=== PATIENT | female | born 1950 | race Caucasian/White ===

== ENCOUNTER 2025-01-21 16:24 | Inpatient (IN) | payer MEDICAID ==
[~2025-01-21] VITALS: Ht 157.5 cm; Wt 74.4 kg
[~2025-01-21 16:24] MED LIST: BENA-8 PO; CIPR-263 MT; FERR325T6 PO; INSHUMSS SUBCUT; INSU100I28 SQ; METF-414 PO; MULT-1116 PO; OMEG-119 MT; PIOG15TA68 PO; SIMV10TA97 PO; VITA250012 MT
[2025-01-21] MEDS ORDERED: LORAZEPAM 2MG/ML INJ IV STA (16:41)
[2025-01-21] MEDS: HALOPERIDOL LACTATE 5MG/ML VIAL IM STA (16:55)
[2025-01-21] MEDS: DIPHENHYDRAMINE 50MG/ML VIAL IV STA (16:55)
[2025-01-21] MEDS: LORAZEPAM 2MG/ML UD SYRINGE IV NR (16:57)
[2025-01-21 17:42] LABS: HEMATOCRIT. 38.2 % (36.0-48.0); HEMOGLOBIN. 12.9 g/dL (12.0-16.0); MEAN CORPUSCULAR HEMOGLOBIN 29.1 pg (28.0-32.0); MEAN CORPUSCULAR HGB CONC 33.8 g/dL (31.0-37.0); MEAN CORPUSCULAR VOLUME 86.1 fL (81.0-99.0); MEAN PLATELET VOLUME 9.5 fl (7.4-10.4); RED BLOOD CELL COUNT 4.44 mill/uL (4.2-5.4); RED CELL DISTRIBUTION WIDTH 17.8 % (11.6-14.6)
[2025-01-21 17:47] LABS: CLARITY URINE CLEAR (CLEAR); COLOR URINE YELLOW (YELLOW); GLUCOSE URINE 3+ (NEGATIVE); KETONES URINE NEGATIVE (NEGATIVE); LEUKOCYTE ESTERASE URINE NEGATIVE (NEGATIVE); NITRITE URINE NEGATIVE (NEGATIVE); OCCULT BLOOD URINE NEGATIVE (NEGATIVE); PROTEIN URINE NEGATIVE (NEGATIVE); SPECIFIC GRAVITY URINE 1.033 (1.005-1.030)
[2025-01-21 17:56] LABS: CHLORIDE 110 mEq/L (98-107); POTASSIUM 3.4 mEq/L (3.5-5.1); SODIUM 145 mEq/L (136-145)
[2025-01-21 17:57] LABS: CALCIUM 9.4 mg/dL (8.7-10.4); CARBON DIOXIDE 23 mEq/L (21-32); DIFFERENTIAL COMMENT 1
[2025-01-21 18:02] LABS: CREATININE 0.8 mg/dL (0.6-1.0); GLUCOSE 296 mg/dL (70-105); UREA NITROGEN BLOOD 12 mg/dL (9-23)
[2025-01-21 18:03] LABS: ETHANOL BLOOD < 10 mg/dL (<10); TROPONIN I HIGH SENSITIVITY 7 ng/L (3.0-34); WHITE BLOOD COUNT 1.7 x1000/uL (4.5-11.0)
[2025-01-21 18:04] LABS: ACETAMINOPHEN < 2 ug/mL (10-30); ALANINE AMINOTRANSFERASE 24 IU/L (10-49); ALBUMIN 3.9 g/dL (3.2-4.8); ASPARTATE AMINOTRANSFERASE 22 IU/L (<34); BILIRUBIN DIRECT 0.5 mg/dL (<=3.0); BILIRUBIN TOTAL 1.4 mg/dL (0.1-1.0); CREATINE KINASE 191 IU/L (34-145); PLATELET 48 x1000/uL (130-400)
[2025-01-21 18:05] LABS: PROTEIN TOTAL 6.2 g/dL (6.0-8.3)
[2025-01-21 18:06] LABS: *AMPHETAMINES SCREEN URINE NEGATIVE (NEGATIVE); *BARBITURATES SCREEN URINE NEGATIVE (NEGATIVE); *BENZODIAZEPINES SCREEN URINE NEGATIVE (NEGATIVE); *COCAINE SCREEN URINE NEGATIVE (NEGATIVE); BACTERIA URINE NONE SEEN; CANNABINOID URINE SCREEN NEGATIVE (NEGATIVE); METHADONE URINE SCREEN NEGATIVE (NEGATIVE); OPIATES URINE SCREEN NEGATIVE (NEGATIVE); PHENCYCLIDINE URINE SCREEN NEGATIVE (NEGATIVE); RBC URINE 0-2 /hpf (0-2); SQUAMOUS EPITHELIAL CELL URINE 1+ /lpf (RARE/1+); WBC URINE 0-2 /hpf (0-2)
[2025-01-21 18:07] LABS: ECSTASY MDMA SCREEN URINE NEGATIVE (NEGATIVE)
[2025-01-21 18:07] LABS: THYROID STIMULATING HORMONE 2.61 uIU/mL (0.55-4.78)
[2025-01-21 18:19] LABS: AMMONIA 146 uMol/L (<32)
[2025-01-21] MEDS ORDERED: LACTULOSE 20G/30ML UDC PO ONE (18:30)
[2025-01-21 18:31] LABS: MICROCYTOSIS 1+; PLATELET ESTIMATE DECREASED
[2025-01-21] MEDS ORDERED: ONDANSETRON HCL 4MG/2ML INJ IV PRN (19:45)
[2025-01-21] MEDS ORDERED: GUAIFENESIN 200MG/10ML SUGAR FREE UDC PO PRN (19:45)
[2025-01-21] MEDS ORDERED: IPRATROPIUM/ALBUTEROL 0.5-3(2.5)MG/3ML NEB HHN PRN (19:45)
[2025-01-21] MEDS ORDERED: CLONIDINE 0.1MG TABLET PO PRN (19:45)
[2025-01-21] MEDS ORDERED: ACETAMINOPHEN 325MG TABLET PO PRN ×2 (19:45)
[2025-01-21 20:00] VITALS: BP 136/49; PULSE 93; RESP 20; TEMP 36.8; TEMP 37; O2SAT 98
[2025-01-21] MEDS ORDERED: DEXTROSE 50% WATER 50ML SYRINGE IV PRN (20:45)
[2025-01-21] MEDS: INSULIN LISPRO 100 UNITS/ML SUBCUT SCH (21:00)
[2025-01-21] MEDS: POTASSIUM CHLORIDE 20MEQ/PACKET PO SCH (21:26)
[2025-01-21] MEDS: BLOOD SUGAR DIAGNOSTIC STRIP TEST SCH (21:26)
[2025-01-21] MEDS: LACTULOSE 20G/30ML UDC PO SCH (21:27)
[2025-01-21 21:51] LABS: VITAMIN B12 SERUM 616 pg/mL (211-911)
[2025-01-22] VITALS: BP 105/32; PULSE 59; RESP 20; TEMP 35.6; O2SAT 97
[2025-01-22 00:02] LABS: TROPONIN I HIGH SENSITIVITY 68 ng/L (3.0-34)
[2025-01-22] MEDS: SODIUM CHLORIDE 0.9% 1,000 ML IV SCH (01:13)
[2025-01-22 04:00] VITALS: BP 104/34; PULSE 55; RESP 20; TEMP 36.4; O2SAT 95
[2025-01-22 08:00] VITALS: BP 112/35; PULSE 56; RESP 15; TEMP 36.5; O2SAT 97
[2025-01-22 08:04] LABS: BASOPHILS % 0.1 % (0.0-2.0); EOSINOPHILS % 2.4 % (0.0-5.0); HEMATOCRIT. 35.5 % (36.0-48.0); HEMOGLOBIN. 12.2 g/dL (12.0-16.0); LYMPHOCYTES % 31.5 % (20.0-50.0); MEAN CORPUSCULAR HEMOGLOBIN 29.3 pg (28.0-32.0); MEAN CORPUSCULAR HGB CONC 34.4 g/dL (31.0-37.0); MEAN CORPUSCULAR VOLUME 85.1 fL (81.0-99.0); MEAN PLATELET VOLUME 10.7 fl (7.4-10.4); MONOCYTES % 13.4 % (2.0-8.0); NEUTROPHILS % 52.6 % (40.0-76.0); RED BLOOD CELL COUNT 4.17 mill/uL (4.2-5.4); RED CELL DISTRIBUTION WIDTH 17.6 % (11.6-14.6); WHITE BLOOD COUNT 2.1 x1000/uL (4.5-11.0)
[2025-01-22 08:15] LABS: DIFFERENTIAL COMMENT 1
[2025-01-22] MEDS ORDERED: SODIUM CHLORIDE 0.9% 500 ML IV NR (08:15)
[2025-01-22 08:17] LABS: CARBON DIOXIDE 24 mEq/L (21-32); CHLORIDE 114 mEq/L (98-107); POTASSIUM 3.6 mEq/L (3.5-5.1); SODIUM 146 mEq/L (136-145)
[2025-01-22 08:18] LABS: CALCIUM 8.6 mg/dL (8.7-10.4)
[2025-01-22 08:23] LABS: GLUCOSE 169 mg/dL (70-105); TRIGLYCERIDE 71 mg/dL (0-150); UREA NITROGEN BLOOD 7 mg/dL (9-23)
[2025-01-22 08:24] LABS: LDL CHOLESTEROL 52 mg/dL (5-100)
[2025-01-22 08:25] LABS: ALANINE AMINOTRANSFERASE 22 IU/L (10-49); ALBUMIN 3.3 g/dL (3.2-4.8); ASPARTATE AMINOTRANSFERASE 22 IU/L (<34); BILIRUBIN DIRECT 0.5 mg/dL (<=3.0); BILIRUBIN TOTAL 1.4 mg/dL (0.1-1.0); CHOLESTEROL 108 mg/dL (<200); HDL CHOLESTEROL 42 mg/dL (>65); PROTEIN TOTAL 5.3 g/dL (6.0-8.3)
[2025-01-22 08:26] LABS: CREATININE 0.5 mg/dL (0.6-1.0)
[2025-01-22 08:41] LABS: TROPONIN I HIGH SENSITIVITY 34 ng/L (3.0-34)
[2025-01-22 08:50] LABS: T4 FREE 0.86 ng/dL (0.89-1.76)
[2025-01-22 09:17] LABS: PLATELET 48 x1000/uL (130-400)
[2025-01-22 12:00] VITALS: BP 133/47; PULSE 67; RESP 16; TEMP 36.4; O2SAT 98
[2025-01-22] MEDS: LACTULOSE ENEMA 1,000ML BOTTLE PR NR ×2 (14:00→23:15)
[2025-01-22] MEDS: RIFAXIMIN 550 MG TABLET NG SCH (14:30)
[2025-01-22 16:00] VITALS: BP 153/55; PULSE 67; RESP 16; TEMP 36.5; O2SAT 98
[2025-01-22] MEDS: DEXT 5%/0.9% NACL 1,000 ML IV SCH (18:35)
[2025-01-22 20:00] VITALS: BP 135/47; PULSE 60; RESP 18; TEMP 35.7; O2SAT 97
[2025-01-23] VITALS: BP 163/63; PULSE 87; RESP 19; TEMP 36.1; O2SAT 97
[2025-01-23 01:54] LABS: AMMONIA 42 uMol/L (<32)
[2025-01-23 04:00] VITALS: BP 146/45; PULSE 69; RESP 20; TEMP 36.1; O2SAT 96
[2025-01-23 06:29] LABS: CARBON DIOXIDE 23 mEq/L (21-32); CHLORIDE 113 mEq/L (98-107); POTASSIUM 3.4 mEq/L (3.5-5.1); SODIUM 147 mEq/L (136-145)
[2025-01-23 06:35] LABS: CREATININE 0.6 mg/dL (0.6-1.0); GLUCOSE 168 mg/dL (70-105); UREA NITROGEN BLOOD 7 mg/dL (9-23)
[2025-01-23 06:36] LABS: BASOPHILS % 0.2 % (0.0-2.0); EOSINOPHILS % 0.3 % (0.0-5.0); HEMATOCRIT. 36.4 % (36.0-48.0); HEMOGLOBIN. 12.1 g/dL (12.0-16.0); LYMPHOCYTES % 13.1 % (20.0-50.0); MEAN CORPUSCULAR HGB CONC 33.3 g/dL (31.0-37.0); MEAN CORPUSCULAR VOLUME 87.1 fL (81.0-99.0); MEAN PLATELET VOLUME 10.1 fl (7.4-10.4); MONOCYTES % 8.8 % (2.0-8.0); NEUTROPHILS % 77.6 % (40.0-76.0); RED BLOOD CELL COUNT 4.18 mill/uL (4.2-5.4); RED CELL DISTRIBUTION WIDTH 17.9 % (11.6-14.6); WHITE BLOOD COUNT 5.1 x1000/uL (4.5-11.0)
[2025-01-23 06:39] LABS: DIFFERENTIAL COMMENT 1
[2025-01-23 06:40] LABS: PLATELET 47 x1000/uL (130-400)
[2025-01-23 06:45] LABS: AMMONIA 58 uMol/L (<32)
[2025-01-23 08:57] VITALS: BP 146/57; PULSE 93; RESP 16; TEMP 36.7; O2SAT 97
[2025-01-23] MEDS: POTASSIUM CHLORIDE 20MEQ/PACKET PO NR (10:25)
[2025-01-23] MEDS: DEXT 5%/0.45% NACL 1000ML 1,000 ML IV SCH (10:28)
[2025-01-23 12:00] VITALS: BP 171/74; PULSE 100; RESP 16; TEMP 36.7; O2SAT 97
[2025-01-23] MEDS: PANTOPRAZOLE SODIUM 40 MG/VIAL IV SCH (15:15)
[2025-01-23 15:22] LABS: IRON 38 ug/dL (50-170)
[2025-01-23 15:24] LABS: TOTAL IRON BINDING CAPACITY 142 ug/dl (250-425)
[2025-01-23 15:28] LABS: FERRITIN 44 ng/mL (10-291)
[2025-01-23 15:40] LABS: HEPATITIS B SURFACE ANTIGEN NEGATIVE (Negative)
[2025-01-23 16:01] LABS: HEPATITIS A AB IGM NEGATIVE (Negative)
[2025-01-23 16:02] LABS: HEPATITIS B CORE AB IGM NEGATIVE (Negative); HEPATITIS C AB NON REACTIVE (Neg) (Negative)
[2025-01-23 16:57] VITALS: BP 146/54; PULSE 79; RESP 15; TEMP 36.6; O2SAT 96
[2025-01-23 17:26] LABS: INR 1.1; PROTHROMBIN TIME 11.9 sec (9.6-11.0)
[2025-01-23 17:35] LABS: FOLIC ACID (FOLATE) SERUM 15.17 ng/mL (>5.38)
[2025-01-23 20:00] VITALS: BP 149/46; PULSE 88; RESP 18; TEMP 36.3; O2SAT 96
[2025-01-23] MEDS: CARVEDILOL 3.125 MG TABLET PO SCH (21:34)
[2025-01-24] VITALS: BP 104/50; PULSE 78; RESP 18; TEMP 36.1; O2SAT 95
[2025-01-24 04:00] VITALS: BP 137/49; PULSE 69; RESP 20; TEMP 36.2; O2SAT 97
[2025-01-24 06:50] LABS: CHLORIDE 110 mEq/L (98-107); POTASSIUM 3.5 mEq/L (3.5-5.1); SODIUM 144 mEq/L (136-145)
[2025-01-24 06:52] LABS: AMMONIA 27 uMol/L (<32); CALCIUM 9.1 mg/dL (8.7-10.4); CARBON DIOXIDE 23 mEq/L (21-32)
[2025-01-24 06:56] LABS: HEMATOCRIT 35.6 % (36.0-48.0); HEMOGLOBIN 11.9 g/dL (12.0-16.0); MEAN CORPUSCULAR HEMOGLOBIN 28.6 pg (28.0-32.0); MEAN CORPUSCULAR HGB CONC 33.3 g/dL (31.0-37.0); MEAN CORPUSCULAR VOLUME 85.9 fL (81.0-99.0); RED BLOOD CELL COUNT 4.15 mill/uL (4.2-5.4); RED CELL DISTRIBUTION WIDTH 17.6 % (11.6-14.6)
[2025-01-24 06:57] LABS: CREATININE 0.7 mg/dL (0.6-1.0); GLUCOSE 246 mg/dL (70-105); UREA NITROGEN BLOOD 10 mg/dL (9-23)
[2025-01-24 06:59] LABS: ALANINE AMINOTRANSFERASE 24 IU/L (10-49); ALBUMIN 3.6 g/dL (3.2-4.8); ASPARTATE AMINOTRANSFERASE 23 IU/L (<34); BILIRUBIN DIRECT 0.7 mg/dL (<=3.0); BILIRUBIN TOTAL 1.7 mg/dL (0.1-1.0)
[2025-01-24 07:00] LABS: PROTEIN TOTAL 5.6 g/dL (6.0-8.3)
[2025-01-24 07:22] LABS: PLATELET 43 x1000/uL (130-400)
[2025-01-24 08:00] VITALS: BP 137/40; PULSE 75; RESP 18; TEMP 36.6; O2SAT 97
[2025-01-24 12:00] VITALS: BP 118/53; PULSE 61; RESP 18; TEMP 36.2; O2SAT 98
[2025-01-24 16:00] VITALS: BP 138/51; PULSE 60; RESP 18; TEMP 36.4; O2SAT 98
[2025-01-24] MEDS ORDERED: HYDROCODONE/ACETAMINOPHEN 5/325MG TABLET PO PRN (18:00)
[2025-01-24 20:00] VITALS: BP 126/45; PULSE 66; RESP 18; TEMP 36.4; O2SAT 96
[2025-01-25] VITALS: BP 103/56; PULSE 68; RESP 18; TEMP 36.4; O2SAT 97
[2025-01-25 04:00] VITALS: BP 136/64; PULSE 62; RESP 19; TEMP 36.3; O2SAT 96
[2025-01-25 07:26] LABS: AMMONIA 35 uMol/L (<32)
[2025-01-25 07:33] LABS: CHLORIDE 108 mEq/L (98-107); POTASSIUM 3.5 mEq/L (3.5-5.1); SODIUM 143 mEq/L (136-145)
[2025-01-25 07:34] LABS: CALCIUM 8.9 mg/dL (8.7-10.4); CARBON DIOXIDE 25 mEq/L (21-32)
[2025-01-25 07:36] LABS: BASOPHILS % 0.2 % (0.0-2.0); EOSINOPHILS % 1.4 % (0.0-5.0); HEMATOCRIT. 34.6 % (36.0-48.0); HEMOGLOBIN. 11.8 g/dL (12.0-16.0); LYMPHOCYTES % 15.8 % (20.0-50.0); MEAN CORPUSCULAR HEMOGLOBIN 29.2 pg (28.0-32.0); MEAN CORPUSCULAR HGB CONC 34.1 g/dL (31.0-37.0); MEAN CORPUSCULAR VOLUME 85.6 fL (81.0-99.0); MEAN PLATELET VOLUME 10.1 fl (7.4-10.4); MONOCYTES % 10.4 % (2.0-8.0); NEUTROPHILS % 72.2 % (40.0-76.0); RED BLOOD CELL COUNT 4.04 mill/uL (4.2-5.4); RED CELL DISTRIBUTION WIDTH 17.2 % (11.6-14.6); WHITE BLOOD COUNT 3.8 x1000/uL (4.5-11.0)
[2025-01-25 07:39] LABS: CREATININE 0.7 mg/dL (0.6-1.0); GLUCOSE 305 mg/dL (70-105); UREA NITROGEN BLOOD 13 mg/dL (9-23)
[2025-01-25 07:41] LABS: ALANINE AMINOTRANSFERASE 27 IU/L (10-49); ALBUMIN 3.2 g/dL (3.2-4.8); ASPARTATE AMINOTRANSFERASE 24 IU/L (<34); BILIRUBIN DIRECT 0.5 mg/dL (<=3.0); BILIRUBIN TOTAL 1.3 mg/dL (0.1-1.0); PROTEIN TOTAL 5.3 g/dL (6.0-8.3)
[2025-01-25 07:54] LABS: DIFFERENTIAL COMMENT 1
[2025-01-25 08:00] VITALS: BP 154/46; PULSE 64; RESP 18; TEMP 35.8; O2SAT 97
[2025-01-25 12:00] VITALS: BP_SYST 113; BP_SYST 138; BP_DIAS 42; BP_DIAS 70; PULSE 58; PULSE 84; RESP 18; TEMP 36.3; TEMP 36.5; O2SAT 97; O2SAT 98
[2025-01-25 15:53] LABS: PLATELET 43 x1000/uL (130-400)
[2025-01-25 16:00] VITALS: BP 116/40; PULSE 64; RESP 18; TEMP 36.5; O2SAT 98
[2025-01-25 20:00] VITALS: BP 114/78; PULSE 64; RESP 19; TEMP 36.4; O2SAT 98
[2025-01-26] VITALS: BP 116/40; PULSE 56; RESP 18; TEMP 36.3; O2SAT 98
[2025-01-26 04:00] VITALS: BP 117/41; PULSE 60; RESP 18; TEMP 36.4; O2SAT 98
[2025-01-26 08:00] VITALS: BP 110/52; PULSE 60; RESP 17; TEMP 36.1; O2SAT 98
[2025-01-26 09:05] LABS: CHLORIDE 105 mEq/L (98-107); POTASSIUM 3.7 mEq/L (3.5-5.1); SODIUM 140 mEq/L (136-145)
[2025-01-26 09:08] LABS: CALCIUM 9.3 mg/dL (8.7-10.4); CARBON DIOXIDE 27 mEq/L (21-32)
[2025-01-26 09:09] LABS: AMMONIA 35 uMol/L (<32)
[2025-01-26 09:13] LABS: CREATININE 0.6 mg/dL (0.6-1.0); GLUCOSE 233 mg/dL (70-105); UREA NITROGEN BLOOD 16 mg/dL (9-23)
[2025-01-26 09:15] LABS: ALANINE AMINOTRANSFERASE 24 IU/L (10-49); ALBUMIN 3.3 g/dL (3.2-4.8); ASPARTATE AMINOTRANSFERASE 18 IU/L (<34); BILIRUBIN DIRECT 0.5 mg/dL (<=3.0); BILIRUBIN TOTAL 1.3 mg/dL (0.1-1.0); PROTEIN TOTAL 5.3 g/dL (6.0-8.3)
[2025-01-26] MEDS: INSULIN GLARGINE 100 UNITS/ML SUBCUT SCH (10:02)
[2025-01-26] MEDS ORDERED: RIFA550T NG (10:08)
[2025-01-26] MEDS ORDERED: COR3 PO (10:08)
[2025-01-26] MEDS ORDERED: LACT-390 PO (10:08)
[2025-01-26 12:00] VITALS: BP 121/36; PULSE 65; RESP 15; TEMP 36.5; O2SAT 96
[2025-01-26 16:00] VITALS: BP_SYST 121; BP_SYST 140; BP_DIAS 36; BP_DIAS 46; PULSE 65; PULSE 68; RESP 16; TEMP 36.2; O2SAT 96; O2SAT 99
== END 2025-01-26 18:55 | disposition home health service (06) ==
LOC: ER 16:24 → 6WST 19:52
PROVIDERS: ADMIT Internal Medicine; ATTEND Internal Medicine
DX: K76.82 Hepatic encephalopathy (principal); G93.41 Metabolic encephalopathy; I21.A1 Myocardial infarction type 2; D69.6 Thrombocytopenia, unspecified; E87.0 Hyperosmolality and hypernatremia; E11.65 Type 2 diabetes mellitus with hyperglycemia; D72.819 Decreased white blood cell count, unspecified; E87.6 Hypokalemia; Z89.432 Acquired absence of left foot; M47.9 Spondylosis, unspecified; K80.20 Calculus of gallbladder without cholecystitis without obstruction; G31.84 Mild cognitive impairment of uncertain or unknown etiology; I10 Essential (primary) hypertension; K74.60 Unspecified cirrhosis of liver; Z78.1 Physical restraint status; Z79.4 Long term (current) use of insulin
CPT/HCPCS: 36415; 70551; 71045; 74176; 76700; 80048; 80061; 80076; 80305; 80307; 80320; 80329; 81003; 82140; 82270; 82306; 82550; 82607; 82728; 82746; 82962; 83036; 83540; 83550; 83735; 83930; 84145; 84439; 84443; 84484; 85025; 85027; 86705; 86709; 86850; 86900; 87340; 93005; 93970; 97116; 97162; 97166; 97530; 99291; A4606; J1200; J1630; J1815; J2060; J2470; J7030; J7042; G0480

== ENCOUNTER 2025-05-03 01:05 | Inpatient (IN) | payer MEDICAID ==
[~2025-05-03] VITALS: Ht 160 cm; Wt 68.5 kg
[~2025-05-03 01:05] MED LIST changes: -CIPR-263 MT; +COR3 PO; +LACT-390 PO
[2025-05-03 01:08] VITALS: O2SAT 97
[2025-05-03 01:53] LABS: BG BASE EXCESS 1.4 mmol/L (-2.0-3.0); BG CARBOXYHEMOGLOBIN 0.8 % (0.5-1.5); BG DEOXYHEMOGLOBIN 3.9 % (0.0-5.0); BG FRACTION INSPIRED OXYGEN 21; BG HCO3 ACT 25.8 mmol/L (21.0-28.0); BG METHEMOGLOBIN 0.1 % (0.5-1.5); BG OXYGEN SATURATION 96.1 % (94.0-98.0); BG OXYHEMOGLOBIN 95.2 % (94.0-98.0); BG PCO2 39.9 mmHg (32.0-45.0); BG PH 7.428 (7.350-7.450); BG PO2 87.3 mmHg (83.0-108.0); BG SAMPLE SITE RIGHT RADIAL; BG TOTAL HEMOGLOBIN 11.7 g/dL (12.0-16.0); BG VENT MODE ROOM AIR
[2025-05-03 02:11] LABS: CREATININE 0.6 mg/dL (0.6-1.0)
[2025-05-03 02:12] LABS: TROPONIN I HIGH SENSITIVITY < 4 ng/L (3.0-34); UREA NITROGEN BLOOD < 5 mg/dL (9-23)
[2025-05-03 02:13] LABS: ASPARTATE AMINOTRANSFERASE 46 IU/L (<34)
[2025-05-03 02:14] LABS: BILIRUBIN DIRECT 0.4 mg/dL (<=3.0); BILIRUBIN TOTAL 1.1 mg/dL (0.1-1.0); PROTEIN TOTAL 5.6 g/dL (6.0-8.3)
[2025-05-03 04:17] LABS: BASOPHILS % 0.2 % (0.0-2.0); EOSINOPHILS % 1.2 % (0.0-5.0); HEMATOCRIT. 32.3 % (36.0-48.0); HEMOGLOBIN. 10.9 g/dL (12.0-16.0); LYMPHOCYTES % 20.5 % (20.0-50.0); MEAN PLATELET VOLUME 9.0 fl (7.4-10.4); MONOCYTES % 10.9 % (2.0-8.0); NEUTROPHILS % 67.2 % (40.0-76.0); RED BLOOD CELL COUNT 3.76 mill/uL (4.2-5.4); RED CELL DISTRIBUTION WIDTH 14.6 % (11.6-14.6)
[2025-05-03 04:21] LABS: PLATELET 57 x1000/uL (130-400)
[2025-05-03 04:34] LABS: INR 1.1
[2025-05-03 06:09] LABS: CLARITY URINE CLEAR (CLEAR); COLOR URINE YELLOW (YELLOW); GLUCOSE URINE 1+ (NEGATIVE); KETONES URINE NEGATIVE (NEGATIVE); LEUKOCYTE ESTERASE URINE 3+ (NEGATIVE); NITRITE URINE NEGATIVE (NEGATIVE); OCCULT BLOOD URINE 1+ (NEGATIVE); PH URINE 7.0 (4.5-8.0); PROTEIN URINE NEGATIVE (NEGATIVE); SPECIFIC GRAVITY URINE 1.008 (1.005-1.030); UROBILINOGEN URINE 0.2 E.U./dL (0.2-1.0)
[2025-05-03 06:21] LABS: *AMPHETAMINES SCREEN URINE NEGATIVE (NEGATIVE); *BARBITURATES SCREEN URINE NEGATIVE (NEGATIVE); *BENZODIAZEPINES SCREEN URINE NEGATIVE (NEGATIVE); *COCAINE SCREEN URINE NEGATIVE (NEGATIVE); CANNABINOID URINE SCREEN NEGATIVE (NEGATIVE); ECSTASY MDMA SCREEN URINE NEGATIVE (NEGATIVE); METHADONE URINE SCREEN NEGATIVE (NEGATIVE); OPIATES URINE SCREEN NEGATIVE (NEGATIVE); PHENCYCLIDINE URINE SCREEN NEGATIVE (NEGATIVE)
[2025-05-03 07:10] LABS: SQUAMOUS EPITHELIAL CELL URINE 1+ /lpf (RARE/1+)
[2025-05-03 07:12] LABS: RBC URINE 0-2 /hpf (0-2); WBC URINE 25-50 /hpf (0-2)
[2025-05-03 07:13] LABS: BACTERIA URINE 2+
[2025-05-03 08:00] VITALS: BP 137/61; PULSE 83; RESP 17; TEMP 35.8; O2SAT 98
[2025-05-03] MEDS ORDERED: DEXTROSE 50% WATER 50ML SYRINGE IV PRN (08:00)
[2025-05-03] MEDS ORDERED: ACETAMINOPHEN 325MG TABLET PO PRN ×2 (08:00→11:00)
[2025-05-03] MEDS ORDERED: ONDANSETRON HCL 4MG/2ML INJ IV PRN ×2 (08:30→11:00)
[2025-05-03] MEDS ORDERED: GABA-1180 MT (08:34)
[2025-05-03] MEDS ORDERED: METF-416 MT (08:34)
[2025-05-03] MEDS ORDERED: BENA40TA91 MT (08:34)
[2025-05-03] MEDS ORDERED: SIMV5TAB58 MT (08:34)
[2025-05-03] MEDS ORDERED: EMPA25TA MT (08:34)
[2025-05-03] MEDS: BLOOD SUGAR DIAGNOSTIC STRIP TEST SCH (08:38)
[2025-05-03 09:43] VITALS: BP 137/61; PULSE 64; RESP 17; TEMP 35.862
[2025-05-03] MEDS: PANTOPRAZOLE SODIUM 40 MG/VIAL IV SCH (09:59)
[2025-05-03] MEDS: INSULIN LISPRO 100 UNITS/ML SUBCUT SCH (10:01)
[2025-05-03 12:00] VITALS: BP 116/36; PULSE 62; RESP 18; TEMP 36.6; O2SAT 97
[2025-05-03 16:00] VITALS: BP 120/54; PULSE 63; RESP 18; TEMP 36.6; O2SAT 97
[2025-05-03 20:00] VITALS: BP 137/59; PULSE 62; RESP 18; TEMP 36.7; O2SAT 98
[2025-05-03] MEDS: LACTULOSE 20G/30ML UDC PO SCH (21:21)
[2025-05-03] MEDS ORDERED: LACTULOSE 20G/30ML UDC PO SCH (22:00)
[2025-05-04] VITALS (7 sets, daily range): BP systolic 99–145; BP diastolic 46–78; PULSE 65–94; RESP 18–20; TEMP 36.3–37; O2SAT 97–100
[2025-05-04 08:18] LABS: BASOPHILS % 0.2 % (0.0-2.0); EOSINOPHILS % 2.1 % (0.0-5.0); HEMATOCRIT. 35.0 % (36.0-48.0); HEMOGLOBIN. 11.8 g/dL (12.0-16.0); LYMPHOCYTES % 25.9 % (20.0-50.0); MEAN PLATELET VOLUME 10.1 fl (7.4-10.4); MONOCYTES % 12.6 % (2.0-8.0); NEUTROPHILS % 59.2 % (40.0-76.0); PLATELET 64 x1000/uL (130-400); RED BLOOD CELL COUNT 4.07 mill/uL (4.2-5.4); RED CELL DISTRIBUTION WIDTH 14.6 % (11.6-14.6)
[2025-05-04 08:37] LABS: CREATININE 0.6 mg/dL (0.6-1.0); UREA NITROGEN BLOOD 6 mg/dL (9-23)
[2025-05-04] MEDS: PANTOPRAZOLE SODIUM 40 MG/VIAL IV SCH (11:57)
[2025-05-04] MEDS: NYSTATIN/TRIAMCIN CREAM 15GM TOP SCH (21:56)
[2025-05-04] MEDS: INSULIN GLARGINE 100 UNITS/ML SUBCUT SCH (21:58)
[2025-05-05] VITALS: BP 126/62; PULSE 68; RESP 17; TEMP 36.8; O2SAT 98
[2025-05-05 04:00] VITALS: BP 109/58; PULSE 63; RESP 18; TEMP 36.8; O2SAT 98
[2025-05-05 08:00] VITALS: BP 117/45; PULSE 63; RESP 18; TEMP 36.4; O2SAT 98
[2025-05-05 12:00] VITALS: BP 142/55; PULSE 69; RESP 18; TEMP 36.7; O2SAT 98
[2025-05-05] MEDS ORDERED: LEVO750T68 MT (12:48)
[2025-05-05] MEDS ORDERED: TRAZ-251 MT (13:15)
[2025-05-05 16:00] VITALS: BP 125/53; PULSE 65; RESP 18; TEMP 36.4; O2SAT 98
[2025-05-05 18:19] VITALS: BP 142/55; PULSE 69; RESP 18; TEMP 98.1
[2025-05-05] MEDS ORDERED: ZOLPIDEM TARTRATE 5MG TABLET PO PRN (21:00)
== END 2025-05-05 19:40 | disposition home health service (06) | DRG 52 ==
LOC: ER 01:08 → 8WST 03:36 → EDBEDREQ 03:58 → EDBEDREQTM 03:58 → ENRESERV 06:32
PROVIDERS: ADMIT Internal Medicine; ATTEND Internal Medicine
DX: G93.41 Metabolic encephalopathy (principal); L89.313 Pressure ulcer of right buttock, stage 3; L89.323 Pressure ulcer of left buttock, stage 3; K74.60 Unspecified cirrhosis of liver; N39.0 Urinary tract infection, site not specified; E11.9 Type 2 diabetes mellitus without complications; E03.9 Hypothyroidism, unspecified; L30.4 Erythema intertrigo; E80.6 Other disorders of bilirubin metabolism; Z79.899 Other long term (current) drug therapy; Z86.73 Personal history of transient ischemic attack (TIA), and cerebral infarction without residual deficits
CPT/HCPCS: 36415; 36600; 71045; 80048; 80076; 80305; 80307; 80320; 80329; 81003; 82140; 82375; 82550; 82805; 82962; 83036; 83735; 83880; 84443; 84484; 85025; 86850; 86900; 93005; 97162; 97535; 99285; J1815; J2470; G0480